=== PATIENT | female | born 1970 ===

== ENCOUNTER 2021-12-04 20:59 | Inpatient (IN) ==
[2021-12-04] MEDS ORDERED: ONDANSETRON 4 MG/2 ML VIAL IV PRN (21:58)
[2021-12-04] MEDS ORDERED: MORPHINE 2 MG/1 ML SYRINGE IV PRN (22:05)
[2021-12-04] MEDS: PIPERACILLIN/TAZOBACTAM 3,375 MG in SODIUM CHLORIDE 0.9% 100 ML IV SCH (23:34)
[2021-12-04] MEDS: DEXTROSE 5% NACL 0.45% 1,000 ML IV SCH (23:34)
[2021-12-05] MEDS: PIPERACILLIN/TAZOBACTAM 3,375 MG in SODIUM CHLORIDE 0.9% 100 ML IV SCH ×3 (06:00→23:08)
[2021-12-05 08:01] LABS: Basophils % 0.5 % (0.0-0.8); Eosinophils # 0.1 10*3/uL (0.0-0.87); Eosinophils % 1.9 % (0.00-10.9); Hematocrit 38.4 VOL% (35.7-47.0); Hemoglobin 13.2 GM/DL (12.0-16.0); Immature Granulocytes % 0.5 %; Immature Granulocytes Absolute 0.02 #; Lymphocytes # 1.1 10*3/uL (1.4-4.0); Lymphocytes % 26.4 % (21.3-54.2); Mean Corpuscular HGB Conc 34.4 GM/DL (32-36); Mean Corpuscular Volume 90.8 FL (87-102); Mean Platelet Volume 11.2 FL (9.6-12.0); Monocytes # 0.4 10*3/uL (0.11-0.8); Monocytes % 8.9 % (1.7-12.7); Neutrophils % 61.8 % (38.7-73.9); Red Blood Count 4.23 MC/CUMM (3.8-5.5); Red Cell Distribution Width 13.2 % (9.3-17.3); White Blood Count 4.2 T/CUMM (4-12)
[2021-12-05 08:03] LABS: Platelet Count 66 T/CUMM (130-400)
[2021-12-05 08:10] LABS: Albumin 3.4 G/DL (3.4-5.0); Calcium 8.7 MG/DL (8.5-10.1); Osmolality,Calculated 285.1 MOS/KG (273-304); Potassium 3.9 MMOL/L (3.5-5.1); Total Protein 7.4 G/DL (6.4-8.2)
[2021-12-05] MEDS ORDERED: GLUCAGON 1 MG VIAL IM PRN (09:26)
[2021-12-05] MEDS ORDERED: DEXTROSE 10% 250 ML BAG IV PRN (09:26)
[2021-12-05] MEDS: DEXTROSE 5% NACL 0.45% 1,000 ML IV SCH ×3 (10:49→23:08)
[2021-12-05] MEDS: INSULIN LISPRO 100 UNIT/ML SUBCUT SCH ×3 (14:28→23:09)
[2021-12-05] MEDS: GABAPENTIN 100 MG CAPSULE PO SCH (20:47)
[2021-12-05] MEDS: PANTOPRAZOLE 40 MG TABLET PO SCH (20:47)
[2021-12-05] MEDS ORDERED: INSULIN GLARGINE 100 UNIT/ML SUBCUT SCH (21:00)
[2021-12-06 05:21] LABS: PT Patient Result 11.2 SECS (10.1-12.1)
[2021-12-06] MEDS: INSULIN LISPRO 100 UNIT/ML SUBCUT SCH ×2 (06:00→12:20)
[2021-12-06] MEDS: PIPERACILLIN/TAZOBACTAM 3,375 MG in SODIUM CHLORIDE 0.9% 100 ML IV SCH (06:00)
[2021-12-06] MEDS ORDERED: LACTATED RINGERS 1,000 ML IV SCH (07:33)
[2021-12-06] MEDS: DEXTROSE 5% NACL 0.45% 1,000 ML IV SCH (07:55)
[2021-12-06] MEDS ORDERED: PANTOPRAZOLE 40 MG TABLET PO SCH (09:00)
[2021-12-06] MEDS ORDERED: ABACAVIR DOLUTEGRAVIR LAMIVUD PO SCH (09:00)
[2021-12-06] MEDS ORDERED: propofoL 200 MG/20 ML VIAL IV ONE (09:04)
[2021-12-06] MEDS ORDERED: ETOMIDATE 20 MG/10 ML VIAL IV ONE (09:04)
[2021-12-06] MEDS ORDERED: LIDOCAINE 2% 5 ML VIAL ONE (09:04)
[2021-12-06] MEDS: GABAPENTIN 100 MG CAPSULE PO SCH (11:12)
[2021-12-06] MEDS: PANTOPRAZOLE 40 MG TABLET PO SCH (11:12)
[2021-12-06 12:16] VITALS: BP 114/58
== END 2021-12-06 14:52 | disposition home or self-care (01) | DRG 392 ==
LOC: EDBD → EDUNIT# → N.ED 20:59 → N.3E 21:58
PROVIDERS: ADMIT Surgery; ATTEND Surgery